=== PATIENT | female | born 1995 | race Caucasian/White ===

== ENCOUNTER 2018-09-08 21:41 | Emergency (ER) | payer SELFPAY ==
[~2018-09-08] VITALS: Ht 165.1 cm; Wt 63.5 kg
[2018-09-08] MEDS ORDERED: NKM (21:54)
[2018-09-08 21:59] VITALS: BP 123/84
--- NOTE | 2018-09-08 21:59 | NUR ---
[facility] shaw in [facility] - 09/08/18 at 2201 by LUIS .
--- NOTE | 2018-09-08 21:59 | NUR ---
ED Nurse Note: Pt walked in to ER with reports of left foot pain & swelling s/p prolonged walking in [place] approx 4-5 days ago. Pt reports noticing blister/callus on sole of foot, bigger today. Reports using callus removed OTC medication [employer]. Pt A&O x4. No acute distress noted. Cap refill <3 sec. Left pedal pulse present upon palpation. Ambulatory with steady gait. Bed in lowest locked position. Fall & safety precautions maintained.
[2018-09-08] MEDS ORDERED: IBUPROFEN600 MG ORAL (22:26)
[2018-09-08] MEDS ORDERED: CEPHALEXIN500 MG ORAL (22:26)
--- NOTE | 2018-09-08 22:29 | NUR ---
ED Nurse Note: Wound cleaned & bandaged per verbal ERMD orders. Pt tolerated well.
[2018-09-08 23:08] VITALS: BP 120/87
--- NOTE | 2018-09-08 23:08 | NUR ---
ED Nurse Note: Patient was evaluated, treated and discharged with aftercare instructions by IN[facility]. Pt provided with discharge paperwork and prescriptions. Verbalized understanding of all information provided. All questions answered to pt's satisfaction. Pt A&O x4. Ambulatory with steady gait. Left with all belongings on hand accompanied by friends. ID band removed per protocol.
--- NOTE | 2018-09-09 02:20 | Emergency Room Report ---
History of Present Illness General Chief Complaint: Skin Rash/Abscess Source: Patient Present Illness HPI Patient is a 23-year-old female presented after increased discomfort to her foot. Patient reports having onset of symptoms after a prolonged walking. She reports having some pain to the plantar aspect of her foot. She denies any fever. She denies any medication allergies. She states that she is not diabetic and has no prior history of immunocompromise. The area had become increasingly painful. Allergies: Coded Allergies: No Known Allergies (Unverified , 09/08/18) Patient History Past Medical History: see triage record Last Menstrual Period: currently on period Now: No : 0 Para: 0 Reviewed Nursing Documentation: PMH: Agreed; PSxH: Agreed Nursing Documentation-PMH Past Medical History: No Stated History Review of Systems All Other Systems: negative except mentioned in HPI Physical Exam Vital Signs Date Time Temp Pulse Resp B/P (MAP) Pulse Ox O2 Delivery O2 Flow Rate FiO2 09/08/18 21:49 98.2 101 18 123/84 (97) 97 Room Air Sp02 EP Interpretation: reviewed, normal General Appearance: normal inspection, well appearing, no apparent distress, alert, GCS 15 Head: atraumatic ENT: normal ENT inspection, hearing grossly normal, normal voice Neck: normal inspection, full range of motion, supple, no bony tend Respiratory: normal inspection, lungs clear, normal breath sounds, no respiratory distress, no retraction, no wheezing Cardiovascular #1: regular rate, rhythm, no edema Gastrointestinal: normal inspection, normal bowel sounds, non tender, soft, no guarding, no hernia Genitourinary: no CVA tenderness Musculoskeletal: normal inspection, back normal, normal range of motion Neurologic: normal inspection, alert, oriented x3, responsive, speech normal Psychiatric: normal inspection, judgement/insight normal, mood/affect normal Skin: no rash, other - plantar pustular lesion to base of great toe Procedures Incision and Drainage Incision and Drainage : Consent: Emergent Site: foot I & D Procedure: betadine prep Wound Location: lower extremity Wound's Depth, Shape: superficial Wound Length (cm): 0 Wound Explored: clean Irrigated w/ Saline (ccs): 10 Anesthesia: 1% Lidocaine Volume Anesthetic (ccs): 1 Sling Applied?: Yes Patient Tolerated: Well Complications: None Medical Decision Making Diagnostic Impression: Primary Impression: Abscess of plantar aspect of foot ER Course Presented for foot pain. Differential diagnosis include was not limited to abscess, contact dermatitis, callus, among others. Patient has a benign exam and does not appear to require any further imaging or laboratory testing at this time . Patient was noted to have what appears to be a plantar abscess. This was anesthetized after consent and incised and drained with a small amount of purulent material. Sterile dressing was applied. Patient does not have any evidence of severe cellulitis. She is given prescription for topical pain medication as well as antibiotics. She is advised to return if she had any worsening of condition. Last Vital Signs Date Time Temp Pulse Resp B/P (MAP) Pulse Ox O2 Delivery O2 Flow Rate FiO2 09/08/18 23:08 95 17 120/87 98 Room Air 09/08/18 21:59 98.2 Status: improved Disposition: HOME, SELF-CARE Condition: Stable Scripts Ibuprofen* (MOTRIN*) 600 Mg Tablet 600 MG ORAL Q8H PRN for For Pain, #30 TAB 0 Refills Prov: Balbir Vidal MD 09/08/18 Cephalexin* (KEFLEX*) 500 Mg Capsule 500 MG ORAL EVERY 6 HOURS, #28 CAP Prov: Balbir Vidal MD 09/08/18 Referrals: NOT CHOSEN IPA/,REFERRING (PCP) Patient Instructions: Abscess Balbir Vidal MD Sep 09, 2018 02:20
== END 2018-09-08 23:15 | disposition home or self-care (01) ==
LOC: EMR 23:06
DX: L02.612 Cutaneous abscess of left foot (principal)
CPT/HCPCS: 99283